=== PATIENT | male | born 1930 | race Caucasian/White ===

== ENCOUNTER 2017-02-03 19:46 | Outpatient (CLI) | payer MEDICARE ==
--- NOTE | 2017-02-03 21:54 | Ultrasound Report ---
EXAM: LEFT LOWER EXTREMITY VENOUS ULTRASOUND EXAM DATE: 02/03/2017 08:37 PM. CLINICAL HISTORY: EDEMA. Left leg edema. Chronic leg swelling off and on. Left leg veins removed for bypass. COMPARISON: 12/12/2015 ultrasound duplex extremity veins left. TECHNIQUE: Real-time sonographic vascular imaging was performed by the principal investigator through the lower extremity utilizing both color-flow and Doppler spectral analysis. Multiple senior patient account representative static shelby ges were saved for review. FINDINGS: Common Femoral Vein (CFV): Normal. CFV-GSV Junction: Normal. Profunda Femoral Vein (PFV): Normal. Femoral Vein (FV) Prox: Normal. Femoral Vein (FV) Mid: Normal. Femoral Vein (FV) Dist: Normal. Popliteal Vein: Limited evaluation. No evidence for deep venous thrombosis. Posterior Tibial Veins: Not seen Peroneal Veins: Not seen Left deep calf veins not seen due to edema. Other: There appears to be a moderate knee joint effusion. Left calf edema. IMPRESSION: 1. No evidence for deep venous thrombosis. Limited exam as above. 2. There appears to be a moderate left knee joint effusion. 3. Left calf edema. [facility] The call report notification system was initiated by Dr. Amanda Farrar at 21:47 hrs on 02/03/17. The above findings were discussed with Dr. Nanci Stapleton by Dr. Amanda Farrar at 21:50 hrs on 02/03. Referring Provider Line: [phone] SITE ID: [id number]
== END 2017-02-03 19:47 | disposition home or self-care (01) ==
LOC: DI 19:46
PROVIDERS: ATTEND Internal Medicine
DX: R60.9 Edema, unspecified (principal); M25.462 Effusion, left knee

== ENCOUNTER 2018-03-30 13:17 | Outpatient (CLI) | payer MEDICARE ==
--- NOTE | 2018-03-30 15:49 | XRAY Report ---
Procedure Date: 03/30/2018 Accession Number: [id number] / [id number] Procedure: XR - Cervical Spine 2 View CPT Code: FULL RESULT: EXAM: Cervical Spine 2 View DATE: 03/30/2018 3:25 PM CLINICAL HISTORY: NECK PAIN COMPARISON: None. TECHNIQUE: 3 views. FINDINGS: Examination is limited by suboptimal views. Specifically, the odontoid view is not diagnostic and the lateral view does not adequately visualize T1. Alignment: Grade 1 anterolisthesis of C5 on C6. Alignment is otherwise preserved. Bones: The cervical vertebral bodies and posterior elements are well visualized from the skull base through C7. No fracture or aggressive osseous lesion is identified. 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 Facets: There is multilevel facet arthropathy which is most pronounced at the lower cervical spine. Soft Tissues: Normal. No prevertebral soft tissue swelling. The visualized lung apices are clear. IMPRESSION: Limited examination with degenerative changes, most pronounced at C5-6 including grade 1 anterolisthesis of C5 on C6. [facility]
== END 2018-03-30 13:18 | disposition home or self-care (01) ==
LOC: DI 13:17
PROVIDERS: ATTEND Internal Medicine
DX: M47.892 Other spondylosis, cervical region (principal); M50.31 Other cervical disc degeneration, high cervical region; M43.12 Spondylolisthesis, cervical region
CPT/HCPCS: 72040